=== PATIENT | male | born 1950 | race Caucasian/White ===

== ENCOUNTER 2017-05-31 19:35 | Emergency (ER) | payer BC, MEDICARE ==
[2017-05-31 19:42] VITALS: BP 161/93; PULSE 82; RESP 18; TEMP 98.4
--- NOTE | 2017-05-31 20:51 | CT ---
EXAMINATION TYPE: CT brain ritu pham DATE OF EXAM: 05/31/2017 COMPARISON: NONE HISTORY: Fall today with left sided injury CT DLP: 1751 mGycm Automated exposure control for dose reduction was used. TECHNIQUE: CT scan of the head and cervical spine are performed without contrast. FINDINGS: There is mild cerebral cortical atrophy. There is no mass effect nor midline shift. There is no sign of intracranial hemorrhage. The calvarium is intact. Cervical vertebra have normal alignment. There is mild narrowing of the disc spaces throughout the ce rvical spine with mild spurring of the endplates. Facet joints are intact. Skull base is intact. Ther e is no evidence of a fracture. 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 No acute intracranial abnormality.
--- NOTE | 2017-05-31 20:53 | XR ---
EXAMINATION TYPE: XR shoulder complete LT DATE OF EXAM: 05/31/2017 COMPARISON: NONE HISTORY: Shoulder pain after falling TECHNIQUE: 3 views FINDINGS: I see no fracture nor dislocation. There is narrowing of the subacromial joint space. The glenohumer al joint is intact. CONCLUSION: Subacromial joint space narrowing and impingement. No fracture seen. There is evidence of significant chronic rotator cuff tear.
--- NOTE | 2017-05-31 22:02 | ED ---
Fall HPI - General Chief Complaint: Fall Stated Complaint: Fell off 6 foot ladder Time Seen by Provider: 05/31/17 20:03 Source: patient, RN notes reviewed, old records reviewed Mode of arrival: ambulatory - History of Present Illness Initial Comments: This is a 66 year old male with CC of right shoulder pain after falling off a 6 foot ladder, and landing on his left arm. He reports he also landed on his neck and head, and has a small laceration over the left side of his scalp. Patient states that he has no headache denies any neck pain. Patient states that he has range of motion over the right shoulder, and denies any elbow pain. Patient states that certain movement of the arm is painful. Patient states that he has no chest pain, shortness of breath, nausea, visoin changes, abdominal pain, lower ying pain, numbness or tiingling. Patient states tetanus is up to date. 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 - Related Data Home Medications Medication Instructions Recorded Confirmed Lisinopril [Zestril] 20 mg PO DAILY 05/31/17 05/31/17 Previous Rx's Medication Instructions Recorded Acetaminophen-Codeine 300-30mg 1 tab PO Q6H PRN #15 tablet 05/31/17 [Tylenol #3] Ibuprofen 600 mg PO TID #20 tablet 05/31/17 Allergies Allergy/AdvReac Type Severity Reaction Status Date / Time aspirin Allergy Unknown Verified 05/31/17 19:55 Review of Systems ROS Statement: Those systems with pertinent positive or pertinent negative responses have been documented in the HPI. ROS Other: All systems not noted in ROS Statement are negative. Past Medical History Past Medical History: Hypertension History of Any Multi-Drug Resistant Organisms: None Reported Past Surgical History: No Surgical Hx Reported, Cholecystectomy Past Psychological History: No Psychological Hx Reported Smoking Status: Former smoker Past Alcohol Use History: Rare Past Drug Use History: None Reported General Exam - General Exam Comments Initial Comments: Well appearing 66 year old male, no distress. Limitations: no limitations General appearance: alert, in no apparent distress Head exam: Present: normocephalic, normal inspection. Absent: atraumatic (1cm laceration over left parietal scalp. ) Eye exam: Present: normal appearance, PERRL, EOMI. Absent: scleral icterus, conjunctival injection, periorbital swelling ENT exam: Present: normal exam, mucous membranes moist Neck exam: Present: normal inspection. Absent: tenderness, meningismus, lymphadenopathy Respiratory exam: Present: normal lung sounds bilaterally. Absent: respiratory distress, wheezes, rales, rhonchi, stridor Cardiovascular Exam: Present: regular rate, normal rhythm, normal heart sounds. Absent: systolic murmur, diastolic murmur, rubs, gallop, clicks GI/Abdominal exam: Present: soft, normal bowel sounds. Absent: distended, tenderness, guarding, rebound, rigid Extremities exam: Present: normal inspection, full ROM, normal capillary refill. Absent: tenderness, pedal edema, joint swelling, calf tenderness Left Shoulder Exam: Present: normal inspection, full ROM (patient has full range of moiton, pain with full extension, abduction. ) Upper Arm exam: Present: normal inspection, full ROM Elbow exam: Present: normal inspection, full ROM Back exam: Present: normal inspection Neurological exam: Present: alert, oriented X3, CN II-XII intact Psychiatric exam: Present: normal affect, normal mood Skin exam: Present: warm, dry, intact, normal color. Absent: rash Course Vital Signs 05/31/17 19:38 Temperature 98.4 F Pulse Rate 82 Respiratory 18 Rate Blood Pressure 161/93 O2 Sat by Pulse 98 Oximetry Procedures - Orthopedic Splinting/Casting Injury #1 Side: left Upper Extremity Injury Location: shoulder Upper Extremity Immobilizer: sling/shoulder immobilizer Medical Decision Making - Medical Decision Making 66 year old male, with left parietal scalp laceration and left shoulder pain after falling off 6 foot ladder on neck, head, and shoulder. Patient had no abodminal tenderness.chest wall tenderness, lungs are clear. Patient reports that he has no other pain besides his left shoulder. Patient underwent CT brain and cspine and was negative and cleared. Patient left shoulder has full range of mtion, but pain with full extension, and abduction. Patient shoulder xray shows evidence of left rotator cuff tear. Patient placed in a sling. Wound was irrigated and too small to close with staple. Patient informed to monitor for infection. Discussed head injury instruction. Return parameters discussed. - Radiology Data Radiology results: report reviewed CT brain and cspine are negtive for any acute process. Multilevel spondylitic changes in the Cspine. subacromial joint space narrowing and impingement. No fracture seen. Evidence of significant chronic rotator cuff tear. Disposition Clinical Impression: Left shoulder pain, Fall, Head injury, closed, without LOC Disposition: HOME SELF-CARE Condition: Good Additional Instructions: Patient has a follow-up with her primary care provider. Return to the emergency department if any alarming signs or symptoms occur. Patient advised to wear the sling. Monitor for any signs of infection over this area. Prescriptions: Acetaminophen-Codeine 300-30mg [Tylenol #3] 1 tab PO Q6H PRN #15 tablet PRN Reason: Pain Ibuprofen 600 mg PO TID #20 tablet Referrals: Harvinder Portillo MD [Primary Care Provider] - 1-2 days Time of Disposition: 21:59
== END 2017-05-31 22:36 | disposition home or self-care (01) ==
LOC: EC 19:35
DX: S01.01XA Laceration without foreign body of scalp, initial encounter (principal); S09.90XA Unspecified injury of head, initial encounter; M25.512 Pain in left shoulder; I10 Essential (primary) hypertension; Z87.891 Personal history of nicotine dependence; Z79.899 Other long term (current) drug therapy; Z88.6 Allergy status to analgesic agent; W11.XXXA Fall on and from ladder, initial encounter; Y92.89 Other specified places as the place of occurrence of the external cause
CPT/HCPCS: 70450; 72125; 99284

== ENCOUNTER → 2020-06-23 | Outpatient (CLI) | payer MEDICARE, BC ==
--- NOTE | 2020-06-23 08:15 | US ---
EXAMINATION TYPE: US duplex aorta DATE OF EXAM: 06/23/2020 COMPARISON: NONE CLINICAL HISTORY: Z13.6 Screening Abd aortic aneurysm. EXAM MEASUREMENTS: Abdominal Aorta: Proximal: obscured Mid: 1.9 x 2.0cm Distal: 1.6 x 1.9cm Right Illiac: 1.1 x 1.0cm Left Illiac: 1.2 x 1.2cm IMPRESSION: 1. No suspicious aneurysmal change.
== END | disposition home or self-care (01) ==
LOC: RADUSWWP 07:33
PROVIDERS: ATTEND Family Medicine
DX: Z13.6 Encounter for screening for cardiovascular disorders (principal)
CPT/HCPCS: 93979

== ENCOUNTER → 2024-08-20 | Outpatient (CLI) | payer MEDICARE, BC ==
[2024-08-20 14:48] LABS: Partial Thromboplastin Time 26.2 sec (22.0-30.0); Prothrombin Time 11.2 sec (10.0-12.5)
[2024-08-20 19:21] LABS: Basophils # (A) 0.06 X 10*3/uL (0.00-0.10); Basophils % (A) 0.9 %; Eosinophils # (A) 0.13 X 10*3/uL (0.04-0.35); Eosinophils % (A) 1.9 %; HGB 14.3 g/dL (13.0-17.0); Lymphocytes # (A) 1.28 X 10*3/uL (0.90-5.00); Lymphocytes % (A) 18.9 %; MCH 31.7 pg (27.0-32.0); MCV 93.1 FL (80.0-97.0); Mean Platelet Volume 9.2 FL (9.5-12.2); Monocytes # (A) 0.45 X 10*3/uL (0.20-1.00); Monocytes % (A) 6.6 %; NRBC Per 100 WBC 0 X 10*3/uL (0.00-0.01); Neutrophils # (A) 4.85 X 10*3/uL (1.80-7.70); Neutrophils % (A) 71.4 %; Platelet Count 301 X 10*3/uL (140-440); RBC 4.51 X 10*6/uL (4.40-5.60); RDW 12.7 % (11.5-14.5); WBC 6.79 X 10*3/uL (4.50-10.00)
[2024-08-20 20:21] LABS: ALT 15 U/L (10-49); AST 30 U/L (14-35); Albumin 4.6 g/dL (3.8-4.9); Albumin/Globulin Ratio 1.39 Ratio (1.60-3.17); Alkaline Phosphatase 71 U/L (41-126); BUN/Creat Ratio 13.06 Ratio (12.00-20.00); Blood Urea Nitrogen 20.9 mg/dL (9.0-27.0); Calcium 9.8 mg/dL (8.7-10.3); Chloride 100 mmol/L (96-109); Globulin 3.3 g/dL (1.6-3.3); Glucose 99 mg/dL (70-110); Potassium 4.8 mmol/L (3.5-5.5); Sodium 137 mmol/L (135-145); Total Bilirubin 0.5 mg/dL (0.3-1.2); Total Protein 7.9 g/dL (6.2-8.2)
== END | disposition home or self-care (01) ==
LOC: LABWHC1 13:31
PROVIDERS: ATTEND Surgery
DX: Z01.818 Encounter for other preprocedural examination (principal); D68.9 Coagulation defect, unspecified
CPT/HCPCS: 36415; 80053; 85025; 85610; 85730

== ENCOUNTER → 2025-01-21 | Outpatient (CLI) | payer MEDICARE, BC ==
--- NOTE | 2025-01-22 10:37 | MR ---
EXAMINATION TYPE: MR lumbar spine wo con DATE OF EXAM: 01/21/2025 7:35 PM COMPARISON: None. CLINICAL INDICATION: Male, 74 years old with history of M54.16 RADICULOPATHY, Low back pain, weakness , Pain in lower extremities TECHNIQUE: Multiplanar, multisequence images of the lumbar spine were acquired. IV Contrast: mL (None, if empty) FINDINGS: Cord ends at the L1-L2 level. L5-S1: There is loss of disc height. No focal disc herniation or significant disc bulge is evident. S [place] canal stenosis present. Moderate to severe bilateral foraminal narrowing is present. Some facet hypertrophy is present. L4-L5: Facet hypertrophy is present. Mild posterior lateral thecal sac compression is present. No AP spinal canal stenosis is present. There is lateral canal stenosis present due to facet hypertrophy an d ligamentum flavum laxity. Minimal disc bulge and disc uncovering is anterior thecal sac contact. Mo derate to severe bilateral foraminal narrowing is present. Minimal grade 1 spondylolisthesis of L4 an teriorly on L5 is present. L3-L4: Mild disc space narrowing is present. Facet hypertrophy is present with severe spinal canal st enosis, greatest in the lateral dimension. Severe bilateral foraminal narrowing is present, worse on the left. L2-L3: Disc space narrowing is present. Mild disc bulge is anterior thecal sac contact. Some spinal c anal narrowing is present. Some facet hypertrophy and ligamentum flavum laxity is posterior lateral t hecal sac compression. Moderate right and severe left foraminal stenosis is present. L1-L2: Mild disc bulge has anterior thecal sac contact. No AP spinal canal stenosis is present. Facet hypertrophy and mild ligamentum flavum laxity is present. Mild to moderate bilateral foraminal narro wing is present . T12-L1: No focal disc herniation or significant disc bulge. No spinal canal stenosis. Neural forame n are patent. Patchy marrow conversion distribution is evident. IMPRESSION: 1. Spinal canal stenosis L4-5 predominantly within the lateral dimension and more severe L3-4. Some s [place] canal narrowing is also present L2-3. 2. Multilevel severe foraminal stenosis discussed above. This may be greatest at the L3-4 level. Wilfrid elate with radicular symptoms. 3. Mild Grade 1 spondylolisthesis L4 anterior on L5. 4. Multilevel degenerative disc bulging, greatest at L4-5. 5. Multilevel narrowing of disc heights. [facility], , 01/22/2025 10:35 AM
== END | disposition home or self-care (01) ==
LOC: RADMRIMAIN 18:38
PROVIDERS: ATTEND Student in an Organized Health Care Education/Training Program
DX: M51.16 Intervertebral disc disorders with radiculopathy, lumbar region (principal); M43.16 Spondylolisthesis, lumbar region; M48.061 Spinal stenosis, lumbar region without neurogenic claudication
CPT/HCPCS: 72148